=== PATIENT | female | born 1930 | race Asian ===

== ENCOUNTER 2019-11-18 20:41 | Emergency (ER) | payer OTHER, MEDICAID ==
[~2019-11-18] VITALS: Ht 162.6 cm; Wt 45.4 kg
[2019-11-19 00:08] VITALS: BP 206/96
== END 2019-11-19 00:08 | disposition home or self-care (01) ==
LOC: ED 20:41
DX: S76.012A Strain of muscle, fascia and tendon of left hip, initial encounter (principal); S09.8XXA Other specified injuries of head, initial encounter; I10 Essential (primary) hypertension; V49.59XA Passenger injured in collision with other motor vehicles in traffic accident, initial encounter; Y93.89 Activity, other specified; Y92.413 State road as the place of occurrence of the external cause; Y99.8 Other external cause status
CPT/HCPCS: Q0092